=== PATIENT | male | born 1965 ===

== ENCOUNTER 2017-12-06 06:18 | Emergency (ER) | payer OTHER, SELFPAY ==
[2017-12-06 06:51] VITALS: BMI 28.3
[2017-12-06 06:58] VITALS: TEMP 98.6; O2SAT 99
--- NOTE | 2017-12-06 07:45 | ED PDOC ---
Hyperglycemia/Hypoglycemia Time Seen by Provider: 12/06/17 07:33 Chief Complaint (Nursing): High Blood Sugar Chief Complaint (Provider): High Blood Sugar History Per: Patient History/Exam Limitations: no limitations Current Symptoms Are (Timing): Intermittent Episodes : The patient does not have any of the infectious symptoms listed except for those marked. Additional Complaint(s): Mr. Benavides is a 52 year old male who has not been complaint with medications for diabetes, hypertension or hypercholesterolemia x 2 months. Patient has had symptoms of fatigue and dry mouth intermittently. Denies headache, chest pain, loss of consciousness. PMD: Clinic Past Medical History Reviewed: Historical Data, Nursing Documentation, Vital Signs Vital Signs: Last Vital Signs Temp 98.6 F 12/06/17 06:55 Pulse 88 12/06/17 06:55 Resp 20 12/06/17 06:55 BP 149/88 12/06/17 06:55 Pulse Ox 99 12/06/17 06:55 - Medical History PMH: Diabetes, HTN, Hypercholesterolemia Denies: HIV, Chronic Kidney Disease - Surgical History Surgical History: Tonsillectomy - Family History Family History: States: Unknown Family Hx - Home Medications Home Medications: Ambulatory Orders Medication Instructions Recorded Lisinopril [Zestril] 10 mg PO DAILY 11/08/16 Simvastatin 10 mg PO DAILY 11/08/16 metFORMIN [glucOPHAGE] 850 mg PO BID 11/08/16 Lisinopril [Prinivil] 10 mg PO DAILY #30 tablet 12/06/17 Simvastatin 20 mg PO DAILY #30 tablet 12/06/17 metFORMIN [glucOPHAGE] 850 mg PO BID #60 tab 12/06/17 - Allergies Allergies/Adverse Reactions: Allergies Allergy/AdvReac Type Severity Reaction Status Date / Time No Known Allergies Allergy Verified 12/06/17 06:51 Review of Systems ROS Statement: Except As Marked, All Systems Reviewed And Found Negative Constitutional: Positive for: Other (Fatigue) ENT: Positive for: Other (Dry mouth) Cardiovascular: Negative for: Chest Pain Neurological: Negative for: Headache, Other (loss of consciousness) Physical Exam - Reviewed Nursing Documentation Reviewed: Yes Vital Signs Reviewed: Yes - Physical Exam Cardiovascular/Chest: Positive for: Regular Rate, Rhythm Respiratory: Positive for: Normal Breath Sounds (Lungs clear). Negative for: Respiratory Distress Gastrointestinal/Abdominal: Positive for: Normal Exam, Soft. Negative for: Tenderness Extremity: Positive for: Normal ROM (Full). Negative for: Deformity - ECG O2 Sat by Pulse Oximetry: 99 (RA) Pulse Ox Interpretation: Normal Medical Decision Making Medical Decision Making: Time: 07:39 Plan: - EKG POC Glucose 189 mg/dL Scribe Attestation: Documented by Kelton Jo, acting as a scribe for Mario Yoder MD. Provider Scribe Attestation: All medical record entries made by the Scribe were at my direction and personally dictated by me. I have reviewed the chart and agree that the record accurately reflects my personal performance of the history, physical exam, medical decision making, and the department course for this patient. I have also personally directed, reviewed, and agree with the discharge instructions and disposition. Disposition - Clinical Impression Clinical Impression: Diabetes, Hypertension, Hypercholesterolemia - Patient ED Disposition Is Patient to be Admitted: No Counseled Patient/Family Regarding: Diagnosis, Need For Followup, Rx Given - Disposition Referrals: [facility] [Outside] Disposition: Routine/Home Disposition Time: 08:15 Condition: FAIR Prescriptions: Lisinopril [Prinivil] 10 mg PO DAILY #30 tablet metFORMIN [glucOPHAGE] 850 mg PO BID #60 tab Simvastatin 20 mg PO DAILY #30 tablet Instructions: Type 2 Diabetes, High Blood Pressure in Adults, High Cholesterol Forms: [employer] (Swedish) Print Language: WELSH
--- NOTE | 2017-12-06 09:05 | CARD ---
APPROVED REPORT EKG Measurement Heart [id number] <Conclusion> Normal sinus rhythm Normal ECG
[2017-12-06 11:30] VITALS: BP 135/80; PULSE 75; RESP 16
== END 2017-12-06 11:30 | disposition home or self-care (01) ==
LOC: H.ER 06:18
DX: E11.9 Type 2 diabetes mellitus without complications (principal); Z79.84 Long term (current) use of oral hypoglycemic drugs; E78.00 Pure hypercholesterolemia, unspecified; I10 Essential (primary) hypertension

== ENCOUNTER 2018-04-25 19:13 | Emergency (ER) | payer OTHER ==
[2018-04-25 19:13] VITALS: BMI 28.3
[2018-04-25 19:22] VITALS: RESP 18; O2SAT 100
--- NOTE | 2018-04-25 20:10 | ED PDOC ---
HPI: Hypertension/Hypotension Time Seen by Provider: 04/25/18 19:54 Chief Complaint (Nursing): High Blood Pressure History Per: Patient History/Exam Limitations: no limitations Onset/Duration Of Symptoms: Mins Current Symptoms Are (Timing): Gone Now Additional Complaint(s): Hx of DM, HTN presenting with elevated BP reading today, states he was at work and he mentioned to a co-worker that he suffers with occasional mild headache and dizziness, checked BP and systolic was 180. States currently he feels fine , no headache, dizziness, chest pain, shortness of breath. Patient wants to know why his blood pressure increases momentarily. No complaints at this time. Past Medical History Reviewed: Historical Data, Nursing Documentation, Vital Signs Vital Signs: Last Vital Signs Temp 98.1 F 04/25/18 19:17 Pulse 81 04/25/18 19:17 Resp 18 04/25/18 19:17 BP 134/78 04/25/18 19:17 Pulse Ox 100 04/25/18 19:17 - Medical History PMH: Diabetes, HTN, Hypercholesterolemia Denies: HIV, Chronic Kidney Disease - Surgical History Surgical History: Tonsillectomy - Family History Family History: States: Unknown Family Hx - Home Medications Home Medications: Ambulatory Orders Medication Instructions Recorded Lisinopril [Zestril] 10 mg PO DAILY 11/08/16 Simvastatin 10 mg PO DAILY 11/08/16 metFORMIN [glucOPHAGE] 850 mg PO BID 11/08/16 Lisinopril [Prinivil] 10 mg PO DAILY #30 tablet 12/06/17 Simvastatin 20 mg PO DAILY #30 tablet 12/06/17 metFORMIN [glucOPHAGE] 850 mg PO BID #60 tab 12/06/17 - Allergies Allergies/Adverse Reactions: Allergies Allergy/AdvReac Type Severity Reaction Status Date / Time No Known Allergies Allergy Verified 12/06/17 06:51 Review of Systems ROS Statement: Except As Marked, All Systems Reviewed And Found Negative Physical Exam - Reviewed Nursing Documentation Reviewed: Yes Vital Signs Reviewed: Yes - Physical Exam Appears: Positive for: Well, Non-toxic, No Acute Distress Head Exam: Positive for: ATRAUMATIC, NORMAL INSPECTION, NORMOCEPHALIC Skin: Positive for: Normal Color, Warm, DRY Eye Exam: Positive for: EOMI, Normal appearance, PERRL ENT: Positive for: Normal ENT Inspection Neck: Positive for: Normal, Painless ROM Cardiovascular/Chest: Positive for: Regular Rate, Rhythm Respiratory: Positive for: CNT, Normal Breath Sounds Gastrointestinal/Abdominal: Positive for: Normal Exam, Soft. Negative for: Tenderness Back: Positive for: Normal Inspection Extremity: Positive for: Normal ROM Neurologic/Psych: Positive for: Alert, sequins slinger II-XII, Oriented, Gait (normal). Negative for: Motor/Sensory Deficits - ECG O2 Sat by Pulse Oximetry: 100 Pulse Ox Interpretation: Normal Medical Decision Making Medical Decision MakinPM Patient arrives to ER for resolved HTN -normal vitals, normal exam, no complaints currently except questioning why he had one abnormal BP reading -advised patient to keep a BP diary and collect data for one week and show to his PMD -advised patient to continue lisinopril 10mg qd, will recommend diet modification (patient is overweight) -no acute ER intervention warranted at this time Disposition - Clinical Impression Clinical Impression: Hypertension - Patient ED Disposition Is Patient to be Admitted: No - Disposition Referrals: Miki Daily MD [Family Provider] - Disposition: Routine/Home Disposition Time: 20:10 Condition: GOOD Instructions: Controlling Your Blood Pressure Through Lifestyle, Medicines for High Blood Pressure, High Blood Pressure in Adults Print Language: MONTSERRAT[place]
[2018-04-26 05:35] VITALS: BP 122/76; PULSE 90; TEMP 98.3
== END 2018-04-25 20:48 | disposition home or self-care (01) ==
LOC: H.ER 19:13
DX: I10 Essential (primary) hypertension (principal); E11.9 Type 2 diabetes mellitus without complications; Z79.84 Long term (current) use of oral hypoglycemic drugs; E78.00 Pure hypercholesterolemia, unspecified